=== PATIENT | male | born 1990 | race African-American/Black ===

== ENCOUNTER 2018-03-24 00:46 | Emergency (ER) | payer MEDICAID ==
[~2018-03-24] VITALS: Ht 188 cm; Wt 59.0 kg
[2018-03-24] MEDS ORDERED: LORAZEPAM 2MG/ML CPJ IV ONE (02:00)
[2018-03-24] MEDS ORDERED: ASPIRIN 81MG TABLET PO ONE (02:00)
[2018-03-24 02:24] LABS: CHLORIDE 104 mEq/L (98-107)
[2018-03-24 02:25] LABS: BASOPHILS % 0.5 % (0.0-2.0); EOSINOPHILS % 0.7 % (0.0-5.0); HEMATOCRIT. 41.1 % (42.0-52.0); HEMOGLOBIN. 13.6 g/dL (14.0-18.0); LYMPHOCYTES % 29.4 % (20.0-50.0); MEAN CORPUSCULAR VOLUME 87.8 fL (80.0-94.0); MEAN PLATELET VOLUME 8.8 fl (7.4-10.4); MONOCYTES % 9.3 % (2.0-8.0); NEUTROPHILS % 60.1 % (40.0-76.0); PLATELET 253 x1000/uL (130-400); RED BLOOD CELL COUNT 4.68 mill/uL (4.7-6.1); RED CELL DISTRIBUTION WIDTH 13.9 % (11.6-14.6)
[2018-03-24 02:31] LABS: CLARITY URINE CLEAR (CLEAR); COLOR URINE YELLOW (YELLOW); KETONES URINE NEGATIVE (NEGATIVE); LEUKOCYTE ESTERASE URINE NEGATIVE (NEGATIVE); NITRITE URINE NEGATIVE (NEGATIVE); OCCULT BLOOD URINE NEGATIVE (NEGATIVE); PROTEIN URINE NEGATIVE (NEGATIVE); SPECIFIC GRAVITY URINE 1.005 (1.005-1.030); UROBILINOGEN URINE 0.2 E.U./dL (0.2-1.0)
[2018-03-24 02:53] LABS: *AMPHETAMINES SCREEN URINE NEGATIVE (NEGATIVE); CANNABINOID URINE SCREEN PRESUMTIVE POSITIVE (NEGATIVE)
[2018-03-24 02:54] LABS: *BENZODIAZEPINES SCREEN URINE NEGATIVE (NEGATIVE); *COCAINE SCREEN URINE NEGATIVE (NEGATIVE); PHENCYCLIDINE URINE SCREEN NEGATIVE (NEGATIVE)
[2018-03-24 02:55] LABS: *BARBITURATES SCREEN URINE NEGATIVE (NEGATIVE); METHADONE URINE SCREEN NEGATIVE (NEGATIVE); OPIATES URINE SCREEN NEGATIVE (NEGATIVE)
[2018-03-24 06:35] VITALS: BP 90/58
== END 2018-03-24 06:38 | disposition home or self-care (01) ==
LOC: ER 00:46
DX: R07.89 Other chest pain (principal)
CPT/HCPCS: 36415; 71045; 80053; 80305; 81003; 83690; 83880; 84484; 85025; 93005; 99285